=== PATIENT | female | born 1950 | race Caucasian/White ===

== ENCOUNTER → 2024-08-25 12:51 | Outpatient (REF) | payer MEDICARE, OTHER, SELFPAY | LOC: RAD 12:51 | PROVIDERS: ATTENDING PHYSICIAN Nurse Practitioner | DX: M25.562 Pain in left knee (principal) | CPT/HCPCS: 73564 ==

== ENCOUNTER → 2025-06-12 09:53 | Outpatient (REF) | payer MEDICARE, OTHER, SELFPAY | LOC: HWRAD 09:53 | PROVIDERS: ATTENDING PHYSICIAN Internal Medicine Nephrology; FAMILY PHYSICIAN Nurse Practitioner | DX: N18.31 Chronic kidney disease, stage 3a (principal) | CPT/HCPCS: 76770 ==